=== PATIENT | male | born 1945 | race Caucasian/White ===

== ENCOUNTER 2018-05-25 18:05 | Emergency (ER) | payer MEDICARE, BC ==
[2018-05-25 22:07] LABS: ABS Basophils 0.1 10^3/ul (0-0.2); ABS Eosinophils 0.2 10^3/ul (0-0.6); ABS Lymphocytes 0.9 10^3/ul (1.0-4.8); ABS Monocytes 0.7 10^3/ul (0-0.8); ABS Neutrophils 5.9 10^3/ul (1.5-7.7); ABS Nucleated RBC 0 10^3/ul; Hematocrit 54 % (42-52); Hemoglobin 17.6 g/dl (14.0-18.0); Lymphocyte % 11.7 %; Mean Corpuscular HGB Conc 33 g/dl (31-36); Mean Corpuscular Hemoglobin 30 pg (27-31); Mean Corpuscular Volume 92 fL (80-94); Mean Platelet Volume 7.5 fL (7.4-10.4); Nucleated Red Blood Cells % 0; Platelet Count 137 10^3/ul (150-450); Red Blood Count 5.83 10^6/ul (4.00-5.40); Red Cell Distribution Width 16 % (10.5-15); White Blood Count 7.8 10^3/ul (3.5-10.8)
[2018-05-25 22:24] LABS: Albumin 3.7 g/dL (3.2-5.2); Albumin/Globulin Ratio 1.2 (1-3); BUN/Creatinine Ratio 31.8 (8-20); C Reactive Protein 15.09 mg/L (<8.01); Calcium 9.1 mg/dL (8.6-10.3); EGFR Non-African American 117.7 (>60); Globulin 3.1 g/dL (2-4); Potassium 4.4 mmol/L (3.5-5.0); Total Protein 6.8 g/dL (6.4-8.9)
[2018-05-26 01:01] LABS: Urine Appearance Clear; Urine Bacteria Absent (Absent); Urine Bilirubin Negative (Negative); Urine Blood Negative (Negative); Urine Color Amber; Urine Glucose Negative (Negative); Urine Ketones Negative (Negative); Urine Nitrite Negative (Negative); Urine Protein 2+(100 mg/dL) (Negative); Urine Red Blood Cell Trace(0-2/hpf) (Absent); Urine Urobilinogen Positive (Negative); Urine White Blood Cell Trace(0-5/hpf) (Absent)
--- NOTE | 2018-05-26 01:37 | ED ---
GI/ HPI - HPI Summary HPI Summary: Patient presents with who is caregiver. states patient has swollen penis and possible infection. states patient has started looking different 4-5 days ago with swelling and foreskin not sliding back over glans. Also complains of decreased urine flow, decreased fluid consumption. Patient denies pain at any time, penile discharge, loss of sensation, fever, cough, sore throat, CP, SOB, N/V/D, abdominal pain, change in BM. Medical history CVA , DM, COPD, A. fib, pancreatitis, and STEMI. Patient on Coumadin. - History of Current Complaint Chief Complaint: EDGeneral Time Seen by Provider: 05/25/18 18:35 Stated Complaint: GROIN PAIN Hx Obtained From: Patient, Family/[employer] Onset/Duration: Started Days Ago Timing: Constant Current Severity: None Pain Intensity: 0 Associated Signs and Symptoms: Positive: Negative Additional Signs & Symptoms: Positive: Penile Swelling Aggravating Factor(s): Nothing Alleviating Factor(s): Nothing - Additional Pertinent History Primary Care Physician: PATRICIA - Allergy/Home Medications Allergies/Adverse Reactions: Allergies Allergy/AdvReac Type Severity Reaction Status Date / Time No Known Allergies Allergy Verified 11/19/15 09:53 PMH/Surg Hx/FS Hx/Imm Hx Endocrine/Hematology History: Reports: Hx Diabetes Cardiovascular History: Reports: Hx Hypercholesterolemia - HLD, Hx Hypertension , Other Cardiovascular Problems/Disorders - IDDM/OBESITY Denies: Hx Pacemaker/ICD Respiratory History: Reports: Hx Chronic Obstructive Pulmonary Disease (COPD), Other Respiratory Problems/Disorders - HX BEING ON VENTILATION/TRACH 12/2014 AFTER UT/CABG GI History: Reports: Hx Gastroesophageal Reflux Disease, Other GI Disorders - OBESITY History: Denies: Hx Dialysis, Hx Renal Disease Musculoskeletal History: Reports: Other Musculoskeletal History - LEFT WRIST FX Sensory History: Reports: Hx Contacts or Glasses Denies: Hx Hearing Aid Opthamlomology History: Reports: Hx Contacts or Glasses Neurological History: Reports: Other Neuro Impairments/Disorders - ESSENTIAL TREMOR Psychiatric History: Reports: Hx Anxiety - CLAUSTROPHOBIA Denies: Hx Panic Disorder - Surgical History Surgery Procedure, Year, and Place: TONSILECTOMY. LT WRIST SURGERY. HERNIA REPAIR 1998. BILATERAL CATARACTS 2010. CABG/HEART VALVE REPLACED. Infectious Disease History: No Infectious Disease History: Denies: Traveled Outside the [place] in Last 30 Days - Social History Alcohol Use: None Substance Use Type: Reports: None Hx Tobacco Use: Yes Smoking Status (MU): Former Smoker Type: Cigarettes Review of Systems Constitutional: Negative Eyes: Negative ENT: Negative Cardiovascular: Negative Respiratory: Negative Gastrointestinal: Negative Positive: other Musculoskeletal: Negative Skin: Negative Neurological: Negative Psychological: Normal All Other Systems Reviewed And Are Negative: Yes Physical Exam - Summary Physical Exam Summary: Positive edema to penis. Skin is extended over the glans of penis, and is retractable. No evidence of discharge, erythema, deficiency and circulation. No pain with palpation of penis. Circulation appears intact. No erythema, ecchymosis, extra warmth or purulent discharge noted. Testicles are tender to palpation bilaterally, both states this is chronic. Testicles do not appear erythematous, swollen. Triage Information Reviewed: Yes Vital Signs On Initial Exam: Initial Vitals Pulse BP Pulse Ox 95 121/96 92 05/25/18 18:24 05/25/18 18:24 05/25/18 18:24 Vital Signs Reviewed: Yes Appearance: Positive: Well-Appearing Skin: Positive: Warm Head/Face: Positive: Normal Head/Face Inspection Eyes: Positive: Normal Neck: Positive: Supple Respiratory/Lung Sounds: Positive: Clear to Auscultation Cardiovascular: Positive: Normal Abdomen Description: Positive: Nontender Male Genital Exam: Positive: Scrotum Tenderness (R), Scrotum Tenderness (L), Testicular Tenderness (R), Testicular Tenderness (L), Other. Negative: Epididymal Tenderness, Erythema Musculoskeletal: Positive: Normal Neurological: Positive: Normal Psychiatric: Positive: Normal AVPU Assessment: Alert - Pointblank Coma Scale Best Eye Response: 4 - Spontaneous Best Motor Response: 6 - Obeys Commands Best Verbal Response: 5 - Oriented Coma Scale Total: 15 Diagnostics - Vital Signs Vital Signs Temp Pulse Resp BP Pulse Ox 05/26/18 00:23 108 24 127/88 94 05/26/18 00:00 95 26 93 05/25/18 23:54 109 26 135/97 93 05/25/18 23:36 107 34 90 05/25/18 23:24 100 31 133/91 88 05/25/18 23:00 95 27 92 05/25/18 22:53 95 27 150/99 89 05/25/18 22:23 95 27 134/81 91 05/25/18 22:00 23 05/25/18 21:53 100 31 124/102 93 05/25/18 21:23 96 32 137/96 91 05/25/18 21:00 98 28 93 05/25/18 20:53 105 28 117/95 92 05/25/18 20:24 102 27 124/87 89 05/25/18 20:00 89 30 80 05/25/18 19:55 96 28 146/73 80 05/25/18 19:24 34 134/95 05/25/18 19:00 93 30 93 05/25/18 18:55 102 27 135/80 95 05/25/18 18:26 99 F 97 18 121/96 92 05/25/18 18:24 95 121/96 92 - Laboratory Lab Results: Lab Results 05/25/18 05/25/18 05/25/18 Range/Units 21:56 21:56 21:56 WBC 7.8 (3.5-10.8) 10^3/ul RBC 5.83 H (4.00-5.40) 10^6/ul Hgb 17.6 (14.0-18.0) g/dl Hct 54 H (42-52) % MCV 92 (80-94) fL MCH 30 (27-31) pg MCHC 33 (31-36) g/dl RDW 16 H (10.5-15) % Plt Count 137 L (150-450) 10^3/ul MPV 7.5 (7.4-10.4) fL Neut % (Auto) 75.8 % Lymph % (Auto) 11.7 % [place] % (Auto) 8.7 % Eos % (Auto) 3.0 % Baso % (Auto) 0.8 % Absolute Neuts (auto) 5.9 (1.5-7.7) 10^3/ul Absolute Lymphs (auto) 0.9 L (1.0-4.8) 10^3/ul Absolute Monos (auto) 0.7 (0-0.8) 10^3/ul Absolute Eos (auto) 0.2 (0-0.6) 10^3/ul Absolute Basos (auto) 0.1 (0-0.2) 10^3/ul Absolute Nucleated RBC 0 10^3/ul Nucleated RBC % 0 Sodium 135 (135-145) mmol/L Potassium 4.4 (3.5-5.0) mmol/L Chloride 102 (101-111) mmol/L Carbon Dioxide 24 (22-32) mmol/L Anion Gap 9 (2-11) mmol/L BUN 21 (6-24) mg/dL Creatinine 0.66 L (0.67-1.17) mg/dL Est GFR ( Amer) 142.4 (>60) Est GFR (Non-Af Amer) 117.7 (>60) BUN/Creatinine Ratio 31.8 H (8-20) Glucose 118 H (70-100) mg/dL Lactic Acid 1.9 (0.5-2.0) mmol/L Calcium 9.1 (8.6-10.3) mg/dL Total Bilirubin 1.00 (0.2-1.0) mg/dL AST 15 (13-39) U/L ALT 11 (7-52) U/L Alkaline Phosphatase 126 H (34-104) U/L C-Reactive Protein 15.09 H (<8.01) mg/L Total Protein 6.8 (6.4-8.9) g/dL Albumin 3.7 (3.2-5.2) g/dL Globulin 3.1 (2-4) g/dL Albumin/Globulin Ratio 1.2 (1-3) Urine Color Urine Appearance Urine pH (5-9) Ur Specific [place] (1.010-1.030) Urine Protein (Negative) Urine Ketones (Negative) Urine Blood (Negative) Urine Nitrate (Negative) Urine Bilirubin (Negative) Urine Urobilinogen (Negative) Ur Leukocyte Esterase (Negative) Urine WBC (Auto) (Absent) Urine RBC (Auto) (Absent) Ur Squamous Epith Cells (Absent) Urine Bacteria (Absent) Urine Glucose (Negative) Urine Ascorbic Acid (Negative) 05/26/18 Range/Units 00:45 WBC (3.5-10.8) 10^3/ul RBC (4.00-5.40) 10^6/ul Hgb (14.0-18.0) g/dl Hct (42-52) % MCV (80-94) fL MCH (27-31) pg MCHC (31-36) g/dl RDW (10.5-15) % Plt Count (150-450) 10^3/ul MPV (7.4-10.4) fL Neut % (Auto) % Lymph % (Auto) % [place] % (Auto) % Eos % (Auto) % Baso % (Auto) % Absolute Neuts (auto) (1.5-7.7) 10^3/ul Absolute Lymphs (auto) (1.0-4.8) 10^3/ul Absolute Monos (auto) (0-0.8) 10^3/ul Absolute Eos (auto) (0-0.6) 10^3/ul Absolute Basos (auto) (0-0.2) 10^3/ul Absolute Nucleated RBC 10^3/ul Nucleated RBC % Sodium (135-145) mmol/L Potassium (3.5-5.0) mmol/L Chloride (101-111) mmol/L Carbon Dioxide (22-32) mmol/L Anion Gap (2-11) mmol/L BUN (6-24) mg/dL Creatinine (0.67-1.17) mg/dL Est GFR ( Amer) (>60) Est GFR (Non-Af Amer) (>60) BUN/Creatinine Ratio (8-20) Glucose (70-100) mg/dL Lactic Acid (0.5-2.0) mmol/L Calcium (8.6-10.3) mg/dL Total Bilirubin (0.2-1.0) mg/dL AST (13-39) U/L ALT (7-52) U/L Alkaline Phosphatase (34-104) U/L C-Reactive Protein (<8.01) mg/L Total Protein (6.4-8.9) g/dL Albumin (3.2-5.2) g/dL Globulin (2-4) g/dL Albumin/Globulin Ratio (1-3) Urine Color [place] Urine Appearance Clear Urine pH 5.0 (5-9) Ur Specific [place] 1.020 (1.010-1.030) Urine Protein 2+(100 mg/dl) A (Negative) Urine Ketones Negative (Negative) Urine Blood Negative (Negative) Urine Nitrate Negative (Negative) Urine Bilirubin Negative (Negative) Urine Urobilinogen Positive A (Negative) Ur Leukocyte Esterase Negative (Negative) Urine WBC (Auto) Trace(0-5/hpf) (Absent) Urine RBC (Auto) Trace(0-2/hpf) (Absent) Ur Squamous Epith Cells Present A (Absent) Urine Bacteria Absent (Absent) Urine Glucose Negative (Negative) Urine Ascorbic Acid * A (Negative) Result Diagrams: 05/25/18 21:56 05/25/18 21:56 Lab Statement: Any lab studies that have been ordered have been reviewed, and results considered in the medical decision making process. GIGU Course/Dx - Course Course Of Treatment: Patient presents with who is caregiver. states patient has swollen penis and possible infection. states patient has started looking different 4-5 days ago with swelling and foreskin not sliding back over glans. Also complains of decreased urine flow, decreased fluid consumption. Patient denies pain at any time, penile discharge, loss of sensation, fever, cough, sore throat, CP, SOB, N/V/D, abdominal pain, change in BM. Medical history CVA, DM, COPD, A. fib, pancreatitis, and STEMI. Patient on Coumadin. Physical exam:Positive edema to penis. Skin is extended over the glans of penis, and is retractable. No evidence of discharge, erythema, deficiency and circulation. No pain with palpation of penis. Circulation appears intact. No erythema, ecchymosis, extra warmth or purulent discharge noted. Testicles are tender to palpation bilaterally, both states this is chronic. Testicles do not appear erythematous, swollen. Vital signs within normal limits. Labs consistent with patient baseline. Ultrasound of testicles negative. Probable paraphimosis self resolved by time of exam. Follow-up with urology. Physical exam by Dr. Farrell as well also agrees with plan. - Diagnoses Provider Diagnoses: Paraphimosis Discharge - Sign-Out/Discharge Documenting (check all that apply): Patient Departure - Discharge Plan Condition: Stable Disposition: HOME Patient Education Materials: Acute Paraphimosis (ED) Referrals: Aiden Pelletier MD [Primary Care Provider] - Harvey Matthews MD [Medical Doctor] - Additional Instructions: Follow-up with urology Dr. Matthews. Return to the ED for any new or worsening symptoms - Billing Disposition and Condition Condition: STABLE Disposition: Home
[2018-05-26 02:46] VITALS: BP 138/96
== END 2018-05-26 02:42 | disposition home or self-care (01) ==
LOC: ED 18:05
DX: N47.2 Paraphimosis (principal); N43.3 Hydrocele, unspecified; I48.91 Unspecified atrial fibrillation; Z79.01 Long term (current) use of anticoagulants; Z95.2 Presence of prosthetic heart valve; Z95.1 Presence of aortocoronary bypass graft; Z87.891 Personal history of nicotine dependence
CPT/HCPCS: 36415; 76870; 80053; 81003; 81015; 83605; 85025; 86140; 87086; 87491; 87591; 99284